=== PATIENT | female | born 1960 | race Caucasian/White ===

== ENCOUNTER 2024-06-16 12:50 | Inpatient (IN) | payer MEDICARE, OTHER, SELFPAY ==
[2024-06-16] VITALS (16 sets, daily range): BP systolic 119–185; BP diastolic 63–92
[2024-06-16 08:16] LABS: % Basophils 0.4 % (0-2); % Eosinophils 0.5 % (0-6); % Immature Granulocytes 0.5 % (0-0.5); % Monocytes 0.6 % (1.7-9.3); Absolute Eosinophils 0.1 10^3/uL (0-0.7); Absolute Immature Granulocytes 0.1 10^3/uL (0-0.05); Absolute Lymphocytes 0.5 10^3/uL (1.2-3.4); Absolute Monocytes 0.1 10^3/uL (0.1-0.6); Absolute Neutrophils 10.7 10^3/uL (1.4-6.5); Hematocrit 38.6 % (37.0-47.0); Hemoglobin 13.3 g/dL (12.0-16.0); Mean Corp Hgb Conc. 34.5 g/dL (33.0-37.0); Mean Corpuscular Volume 95.8 fL (81.0-99.0); Mean Platelet Volume 10.6 fL (7.4-10.4); Nucleated Red Blood Cells % 0 %; Platelet Count 232 10^3/uL (130-400); Red Blood Cell Count 4.03 10^6/uL (4.20-5.40); Red Cell Dist. Width 11.9 % (11.5-14.5); White Blood Cell Count 11.3 10^3/uL (4.8-10.8)
[2024-06-16 08:31] LABS: ALT (SGPT) 24 U/L (0-35); AST (SGOT) 22 U/L (14-36); Alkaline Phosphatase 101 U/L (38-126); Blood Urea Nitrogen 21 mg/dl (7-17); Calcium 9.7 mg/dl (8.4-10.2); Carbon Dioxide 22 mmol/L (22-30); Chloride 106 mmol/L (98-107); Estimated Creatinine Clearance 101 ml/min; Glucose 303 mg/dl (70-99); Potassium 4.4 mmol/L (3.5-5.1); Sodium 140 mmol/L (135-145); Total Bilirubin 0.8 mg/dl (0.2-1.3); Total Protein 6.8 g/dl (6.3-8.2); eGFR > 60.00
[2024-06-16] MEDS: DILAUDID 0.5 MG IV ×2 (08:52→14:41)
--- NOTE | 2024-06-16 09:52 | ED.GENMED ---
History of Present Illness
General
Chief Complaint: Flank Pain
Source: patient
Exam Limitations: none
Time Seen by Provider: 06/16/24 08:52
History of Present Illness
History of Present Illness:
64-year-old female presents with acute onset of left flank pain. Patient states she woke up around 4:30 AM with the pain. She reports she is never had pain like this before does admit that she has been nauseous as well. She was given Toradol and
Zofran by EMS. On my evaluation patient reports pain is about a 5 out of 10 and is improved but does persist. No injury. No abdominal pain. She denies any history of medical conditions.
Past History
Past History
ED Past Medical History: Other (Cataracts)
Phy Exam
Physical Exam
Physical Exam:
CONSTITUTIONAL Patient alert and oriented to person, place and time. Well-appearing. Vital signs reviewed. Obese
HEAD atraumatic, normocephalic.
EYES eyelids normal to inspection, Pupils equally round and reactive to light, Extraocular muscles intact, Conjunctiva normal, Sclera normal.
NECK normal range of motion, Trachea midline, no jugular venous distention.
RESPIRATORY CHEST No respiratory distress noted, Chest expansion equal, Bilateral breath sounds clear.
CARDIOVASCULAR regular rate and rhythm, Heart sounds normal.
ABDOMEN abdomen nontender, Bowel sounds normal. No distention.
BACK normal inspection, no obvious deformities, mild left CVA tenderness
UPPER EXTREMITY range of motion normal, Motor strength normal, no cyanosis, no edema.
LOWER EXTREMITY range of motion normal, Motor strength normal, no cyanosis, no edema.
NEURO Speech normal, No focal motor deficits, [place] coma scale 15, Memory normal, Cranial Nerves intact to screening exam.
SKIN skin warm, dry, and normal in color.
PSYCHIATRIC patient oriented to person place and time, Normal affect.
Course
Orders/Labs/Results
Orders:
Orders
06/16/24 08:07
Complete Blood Count/With Diff Urgent
Comprehensive Metabolic Panel Urgent
Urinalysis Reflex To Culture Urgent
Date Specimen was Collected: 06/16/24
Time Specimen was Collected: 07:53
Urine Microscopic Reflex Cult Urgent
Urine Culture Urgent
RANJEET Source: U
Specimen Description:
Date Specimen was Collected: 06/16/24
Time Specimen was Collected: 07:53
06/16/24 08:39
HYDROmorphone [Dilaudid] 0.5 mg .ROUTE .STK-MED ONE
06/16/24 08:51
HYDROmorphone [Dilaudid] 0.5 mg IV NOW STA
06/16/24 09:09
CT Abd/pel Without Iv Or Oral Urgent
Comment:
Reason For Exam: L flank pain
0.9% Sodium Chloride 1000 ml [Nss] 1,000 ml IV BOLUS
06/16/24 10:42
Straight cath- Treatment ONCE
06/16/24 11:44
CefTRIAXone [Rocephin] 2,000 mg IV NOW STA
06/16/24 11:45
Lactic Acid Urgent
Blood Culture Urgent
RANJEET Source: Blood/Venous
Specimen Description:
06/16/24 11:46
Blood Culture Urgent
RANJEET Source: Blood/Venous
Specimen Description:
Abnormal Lab Results
06/16/24
08:07
WBC 11.3 H 10^3/uL
(4.8-10.8)
RBC 4.03 L 10^6/uL
(4.20-5.40)
MCH 33.0 H pg
(27.0-31.0)
MPV 10.6 H fL
(7.4-10.4)
Abs Immat Gran (auto) 0.1 H 10^3/uL
(0-0.05)
Absolute Neuts (auto) 10.7 H 10^3/uL
(1.4-6.5)
Absolute Lymphs (auto) 0.5 L 10^3/uL
(1.2-3.4)
Neutrophils % 94.0 H %
(42.2-75.2)
Lymphocytes % 4.0 L %
(20.5-51.1)
Monocytes % 0.6 L %
(1.7-9.3)
BUN 21 H mg/dl
(7-17)
Glucose 303 H mg/dl
(70-99)
Urine Ketones Trace A
(Negative)
Ur Occult Blood Reflex 4+ A
(Negative)
Urine Nitrite (Reflex) Positive A
(Negative)
Leukocyte Esterase Rfl 2+ A
(Negative)
Urine Glucose 1+ A
(Negative)
06/16/24 08:07
06/16/24 08:07
Vital Signs
Initial and Last Documented VS:
Initial Vital Signs
Temp Pulse Resp BP Pulse Ox
98.6 F 91 17 164/82 94
06/16/24 07:36 06/16/24 07:36 06/16/24 07:36 06/16/24 07:36 06/16/24 07:36
Last Documented Vital Signs
Temp Pulse Resp BP Pulse Ox
99.7 F 118 33 161/78 97
06/16/24 08:56 06/16/24 11:00 06/16/24 11:00 06/16/24 11:00 06/16/24 11:00
MDM/Problems Addressed
MDM/Problems Addressed:
Renal colic, obesity, possible kidney mass, uti, infected kidney stone
*Radiology
Radiology exam reviewed: radiology read reviewed
*Pulse Oximetry
Patient hypoxic: no
*Critical Care Note
Total Time (30-74mins, 75-104mins- exclusive of procedures): 30 minutes
Data Reviewed
Source: patient
Patient Management
Discussion with other providers: Wrinkle Chaser (Urology)
Escalation/DeEscalation of care consider admission/obs:
Six 4-year-old female presents with left leg pain. Found to be hyperglycemic. Appears at the past they were concerned about the rising hemoglobin A1c but she is not treated for diabetes. Of note, her urine does show nitrite positive and she has a
low-grade temp. Given her white count and findings concern for infected stone. Case discussed with urology. Cover with antibiotics. Also seen was a possible renal mass. Urology to evaluate. Admit
ED Attending Note
-
Portions of this chart may have been created with voice recognition software.� Occasional wrong word or��sound alike� substitutions may have occurred due to the inherent limitations of voice recognition software.
Discharge Plan
Departure
Patient Disposition: Admit
Date of Disposition: 06/16/24
Time of Disposition: 11:51
Admit to: Med/Surg
Presentation/result/management discussed w/ accepting MD/: Hospitalist
Discharge Problem:
Nephrolithiasis, Urinary tract infection, Acute hyperglycemia
Referrals:
Abhinav Carbajal DO [Family Provider] -
Discharge Date and Time
Print Language: BURKINAN
[2024-06-16 11:30] LABS: Urine Albumin Trace (Neg - Trace); Urine Bilirubin Negative (Negative); Urine Character Clear (Clear); Urine Color Yellow; Urine Glucose 1+ (Negative); Urine Ketone Trace (Negative); Urine Leukocyte 2+ (Negative); Urine Nitrite Positive (Negative); Urine Occult Blood 4+ (Negative); Urine Specific Gravity 1.015 (<1.030); Urine Urobilinogen Negative (Neg - 1+)
[2024-06-16] MEDS: NSS 1000 IV ×2 (11:42→15:01)
[2024-06-16 11:50] LABS: Urine Bacteria Many (Negative)
--- NOTE | 2024-06-16 12:15 | HPS.HSE ---
Family Physician
-
Family Physician: Abhinav Carbajal
Chief Complaint
-
Left flank pain with nausea, vomiting
History of Present Illness
64-year-old female complaining of left flank pain that woke her up at 4 AM with chills, diaphoresis and episode of vomiting. She denies any urinary symptoms. No history of calculus, although her sister has history of renal calculi. She denies
headache, sore throat, fever, chills, chest pain, palpitations, shortness breath, cough, abdominal pain, current nausea, diarrhea, increased thirst, increased urination. Her CT abdomen showed 2 mm left UPJ calculus with mild-moderate ureteral
dilation along with incidental 3 cm left kidney mass which will be worked up as outpatient by urology Dr. Louise discussed at bedside. She was also noted to be hyperglycemic with blood sugar of 303 denies history of diabetes, although outpatient
record showed she had an elevated HgbA1c of 6.29 June 2023 along with elevated lipid panel for which she never followed up. Patient does report she perhaps did not look in her patient portal after getting her labs last year. She is past medical
history of morbid obesity, ex-smoker quit 1990.
Medical History
Past Medical History
Past Medical History: Reports Other
Additional Past Medical History:
Morbid obesity
Ex-smoker quit 1990
Past Surgical History: Reports Other
Additional Past Surgical History:
Hysterectomy
Cholecystectomy
Left ankle reconstruction with rods due to fracture
Tonsillectomy
Bilateral cataract extraction
Social History
Tobacco: Non-smoker
Alcohol: Occasional (Weekends 2 glasses of wine or 2 cocktails with friends)
Drug: None
Personal: Single
Living: Alone
Employment: Retired
Family History
Family History: Other (Sister history of renal calculi, mother pulmonary embolism status post benign brain meningioma resection age 68 history DM2, father age 87 old age)
Allergies / Home Medications
Allergies reflects when Allergies were last updated in [facility].
Home Medications with original date entered in [facility]
Allergy/Medication List:
Allergies
Allergy/AdvReac Type Severity Reaction Status Date / Time
No Known Allergies Allergy Unverified 06/16/24 07:51
Home Medications
No Meds [No Current Medications] 06/16/24
Review of Systems
-
History Source: Patient
A 12 point ROS was completed and negative except as noted: Yes
Constitutional: Reports Chills; Denies Fever
EENT: Denies Sore Throat
Respiratory: Denies Cough or Trouble Breathing
Cardiac: Denies Chest Pain, Diaphoresis, Palpitations or Syncope
Abdomen/GI: Reports Vomiting (X 1 at 4 AM); Denies Abdominal Pain, Nausea, Diarrhea, Constipated or Bloody Stools
: Reports Flank Pain (Left-sided); Denies Dysuria, Frequency, Incontinence, Difficulty Voiding, Urgency or Bleeding
Musculoskeletal: Denies Joint Pain or Edema
Skin: Denies Itching or Rash
Neurological: Denies Dizzy, Headache or Weakness
Endocrine: Reports No Symptoms
Hematologic/Lymphatic: Reports No Symptoms
Psych: Reports Calm
Physical Exam
Vital Signs
Vital Signs
Temp Pulse Resp BP Pulse Ox
99.7 F 118 33 161/78 97
06/16/24 08:56 06/16/24 11:00 06/16/24 11:00 06/16/24 11:00 06/16/24 11:00
Physical Exam
General: Comfortable, Conversant, Pain (Left flank), Chills and Morbidly Obese; No Fever
HEENT: NormoCephalic, Anicteric, Moist mucous membranes, PERRLA, [place] Conjunctivae and No Ptosis
Respiratory: Clear; No Wheezes, Rales or Rhonchi
Cardiac: S1/S2 and Tachycardia (Sinus tachycardia HR 118 bpm); No Murmur, Rub, Gallop or Peripheral Edema
Breast: Deferred by me
GI: Soft, Non Tender, Non Distended, Normal Bowel Sounds and No Hepatosplenomegaly
Rectal: Deferred by Provider
Genito-urinary: Costovertebral angle tend (Left CVA tenderness)
Musculoskeletal: No Clubbing, No Cyanosis and No Edema
Skin: Warm and Dry; No Rash
Neuro: AO x 3, No Motor Deficits, Nonfocal/grossly intact and No Sensory Deficits; No Slurred Speech, Facial Droop or Tremors
Psych: Calm
Laboratory Results
-
06/16/24 08:07
06/16/24 08:07
Laboratory Results
Total Bilirubin 0.8 mg/dl (0.2-1.3) 06/16/24 08:07
AST 22 U/L (14-36) 06/16/24 08:07
ALT 24 U/L (0-35) 06/16/24 08:07
Alkaline Phosphatase 101 U/L (38-126) 06/16/24 08:07
Impression/Plan
-
Impression/plan:
Admit to MedSurg
#Sepsis 2/2 to pyelonephritis with moderate left ureteral dilation and 2 mm left UVJ calculus
WBC 11.3 with left shift, 99.7, HR 118
-Consult urology
-Follow urine culture
-Check lactic acid
-IV Rocephin
-IV NSS 1 L given in ER
-IV Dilaudid as needed moderate-severe pain, Tylenol mild pain
-Follow CBC, BMP, blood cultures x2 pending
CT abdomen pelvis without IV or oral contrast:
1. 2 mm left ureterovesical junction calculus with mild to moderate left ureteral and pelvicalyceal dilation.
2. concern raised for a 3 cm mass arising from the left kidney. Lobulation of the left kidney is normal variation is a differential consideration, although felt
to be less likely. Further evaluation with dedicated CT or MRI of the abdomen with attention to the kidneys is advised, to be performed without
and with contrast if there are no contraindications.
# New 3 cm mass left kidney unclear
-Consider CT or MRI of abdomen with contrast per radiology recc
-Discussed with Dr. Louise at bedside will have patient follow-up as outpatient
#New onset Dm
Never followed up regarding elevated A1c 6.4% in 2022. She does report perhaps she did not look in her portal for follow-up
PCP is Dr Carbajal
BS 303, last oral intake yesterday 06/15/24
-Accu-Cheks with SSI, check HgbA1c
-Consult coding educator if inpatient by Tuesday am
-Will place diabetic training by nursing
-Iv Nss 100 cc/hr
- pending Hgba1c will decide on BS mgmt with meds
#Reported outpatient history of elevated lipid profile from June 2023-noncompliant follow-up
Will check lipid profile
#Ex-smoker
Quit 1989
Morbid obesity due to excess calorie consumption�BMI 45.6
-Affects all aspects of care
-Recommended weight loss with 1800 ADA low-fat diet
DVT prophylaxis
Sq heparin in am
Full code
[2024-06-16 12:21] LABS: Glucose - Point of Care 219 mg/dl (70-99)
--- NOTE | 2024-06-16 12:33 | CONS.URO ---
Consultation
-
Performing Provider: Peffer
Reason for Consultation: Ureteral stone, UTI, sepsis
Medical History
History of Present Illness
64F with no prior history of stones
Presented to ER today with severe L flank pain
CT showed a 2mm L distal ureteral stone
Found to have low grade elevated temp, persistent tachypnea and tachycardia, leukocytosis, and UA grossly positive for infection
She was started on abx and being admitted for sepsis
Urology consulted for obstructing stone
Past Medical History
Past Medical History: None
Past Surgical History: Cholecystectomy, Gynocological and Tonsilectomy
Social History
Tobacco: Former Smoker
Alcohol: Occasional
Family History
Family History: Reviewed & Not Pertinent
Allergies/Home Medications
Allergies
Allergy/AdvReac Type Severity Reaction Status Date / Time
No Known Allergies Allergy Unverified 06/16/24 07:51
Home Medications
�Medication �Instructions �Recorded �Confirmed �Type
No Meds [No Current Medications] 06/16/24 06/16/24 History
Physical Exam
Vital Signs
Vital Signs
Temp Pulse Resp BP Pulse Ox
99.7 F 118 33 161/78 97
06/16/24 08:56 06/16/24 11:00 06/16/24 11:00 06/16/24 11:00 06/16/24 11:00
Lab / Testing Results
Laboratory Results
06/16/24 08:07
06/16/24 08:07
Physical Exam
General: Well Developed, Well Nourished and Other (tachypneic)
Respiratory: Clear and Other (tachy)
Cardiac: Tachycardia
GI: Soft and Non Tender
Genito-urinary: Costovertebral Angle Tend
Neuro: AO x 3
Psych: Calm and Intact Judgement
Assessment / Plan
-
64F with sepsis from obstructing 2mm distal L ureteral stone
Incidental 3cm L renal mass vs abnormal anatomy
- OR for cystoscopy, left ureteral stent - possible distal ureteroscopy if stone easily accessed without pressure irrigation
- IV antibiotics pending cultures
- Okay for diet after procedure
- Supportive care per hospitalist
Data Reviewed
-
CT Scan: Image personally visualized and interpreted
Lab Data: Labs Reviewed
--- NOTE | 2024-06-16 12:53 | W.PN.UPDATE ---
Update Note
Progress Note Update
This is an addendum to the H&P written by Beatrice Vazquez on 06/16/2024. Patient seen examined independently with FORGING ROLL OPERATOR.
64-year-old female here with left flank pain.
CT scan showing 2 mm left UVJ calculus.
Clinically patient septic secondary to left-sided pyelonephritis. N.p.o., IV fluids, urine culture, blood cultures, ceftriaxone. Urology to take to OR for stent.
Patient also with hyperglycemia blood sugar 300 possibly due to untreated/on followed diabetes. Insulin sliding scale. Check hemoglobin A1c.
[2024-06-16 13:57] LABS: Glucose - Point of Care 209 mg/dl (70-99)
--- NOTE | 2024-06-16 14:55 | W.IMMPOSTOP ---
Surgical Immed Post Op Note
-
Primary Surgeon: Peffer
Assisting Surgeon: none
Pre-op Diagnosis: Sepsis, L ureteral stone
Post-op Diagnosis: same
Procedure Performed: cystoscopy, L ureteroscopy, L ureteral stent
Anesthesia Type: gen
Specimen / Cultures: none
Estimated Blood Loss: none
Complications: none
Operative Findings: no distal ureteral stone or bladder stone found
stent in good position with mildly purulent urine
--- NOTE | 2024-06-16 15:24 | PTCARENOTE ---
1509: Patient arrived to 2S. Full head to toe assessment completed. IVF running per order. Patient wearing 2L NC with SpO2 greater than 92%. Call andino within reach and bed in lowest position.
[2024-06-16 16:00] LABS: Glucose - Point of Care 276 mg/dl (70-99)
[2024-06-16] MEDS: NOVOLOG FLEXPEN-LOW RESISTANCE 3 UNITS SC (16:25)
[2024-06-16] MEDS: TYLENOL 650 MG PO (18:50)
[2024-06-16] MEDS: HEPARIN 5000 UNITS SC (19:57)
[2024-06-16] MEDS: ROXICODONE 5 MG PO (21:07)
[2024-06-16 21:35] LABS: Glucose - Point of Care 296 mg/dl (70-99)
[2024-06-17 03:20] VITALS: BP 136/86
[2024-06-17] MEDS: NSS 1000 IV (03:59)
[2024-06-17 06:32] LABS: % Basophils 0.1 % (0-2); % Immature Granulocytes 0.4 % (0-0.5); % Lymphocytes 6.1 % (20.5-51.1); % Monocytes 2.8 % (1.7-9.3); % Neutrophils 90.6 % (42.2-75.2); Absolute Immature Granulocytes 0.1 10^3/uL (0-0.05); Absolute Lymphocytes 0.8 10^3/uL (1.2-3.4); Absolute Monocytes 0.4 10^3/uL (0.1-0.6); Absolute Neutrophils 11.8 10^3/uL (1.4-6.5); Hematocrit 34.4 % (37.0-47.0); Mean Corp Hgb Conc. 34.9 g/dL (33.0-37.0); Mean Corpuscular Hgb 34.3 pg (27.0-31.0); Mean Corpuscular Volume 98.3 fL (81.0-99.0); Mean Platelet Volume 10.9 fL (7.4-10.4); Nucleated Red Blood Cells % 0 %; Platelet Count 198 10^3/uL (130-400); Red Cell Dist. Width 11.8 % (11.5-14.5)
--- NOTE | 2024-06-17 07:05 | PTCARENOTE ---
Diabetic teaching talked about with pt. Specifically diet control.
[2024-06-17 07:09] LABS: ALT (SGPT) 25 U/L (0-35); AST (SGOT) 22 U/L (14-36); Albumin 3.5 g/dl (3.5-5.0); Alkaline Phosphatase 71 U/L (38-126); Blood Urea Nitrogen 12 mg/dl (7-17); Calcium 9.1 mg/dl (8.4-10.2); Carbon Dioxide 22 mmol/L (22-30); Chloride 108 mmol/L (98-107); Estimated Creatinine Clearance > 125 ml/min; Glucose 216 mg/dl (70-99); HDL Cholesterol 33 mg/dl; LDL Cholesterol, Calculated 134 mg/dl; Potassium 4.3 mmol/L (3.5-5.1); Sodium 140 mmol/L (135-145); Total Bilirubin 0.7 mg/dl (0.2-1.3); Total Cholesterol 191 mg/dl (50-199); Total Protein 6.1 g/dl (6.3-8.2); Triglyceride 124 mg/dl (10-149); Very Low Density Lipoprotein 24 mg/dl (0-30); eGFR > 60.00
[2024-06-17 07:25] VITALS: BP 160/90
[2024-06-17 07:32] LABS: Glucose - Point of Care 219 mg/dl (70-99)
--- NOTE | 2024-06-17 08:30 | W.PN.HOSP.TC ---
Today's Communication/Plan
-
Continue antibiotics
Await cultures
Add Lantus, NovoLog
Diabetes education consult tomorrow
Assessment / Plan
Assessment / Plan
Gen-AAOx3, NAD
HEENT-NC, AT, anicteric, clear oral mm
Neck-supple
CV-reg, no M, +S1/S2
Lungs-clear B/L
Abd-soft, NT, ND
Ext-no edema
Musculoskeletal-no cyanosis, clubbing
Skin-warm and dry
Neuro-grossly non-focal
Psych-calm, cooperative
Sepsis due to left pyelonephritis -due to obstructive uropathy due to nephrolithiasis. Hemodynamically stable, sepsis improved. Continue antibiotics. Blood cultures positive for gram-negative bacilli, urine culture pending. Currently on IV
ceftriaxone.
Obstructive uropathy -left UVJ stone. Underwent successful cystoscopy with stenting yesterday.
Left renal mass -3 cm. Will need further evaluation as an outpatient, follow-up with urology.
DM2 with hyperglycemia -new diagnosis of diabetes. Hemoglobin A1c 7.0%. Recommend diet, exercise, weight loss. She is opposed to using metformin because of concerns over side effects. Can consider GLP-1 agonist on discharge. Currently on
insulin sliding scale, add basal/bolus insulin.
Morbid obesity due to excess calories
Full code
Anticipated Discharge: 24 - 48 hours
Subjective/Interval History
-
Date of Service: June 17, 2024
Patient seen and examined. Feels much better. Minimal left flank pain.
Objective Data
-
Labs:
Laboratory Results
06/17/24
06:14
WBC 13.0 H
Hgb 12.0
Hct 34.4 L
Plt Count 198
Sodium 140
Potassium 4.3
Chloride 108 H
Carbon Dioxide 22
BUN 12
Creatinine 0.6
Glucose 216 H
Calcium 9.1
Total Bilirubin 0.7
AST 22
ALT 25
Alkaline Phosphatase 71
Vital Signs:
Vital Signs
Temp Pulse Resp BP Pulse Ox
97.7 F 81 18 160/90 98
06/17/24 07:25 06/17/24 07:25 06/17/24 07:25 06/17/24 07:25 06/17/24 07:25
I&O
06/16/24 06/17/24 06/18/24
06:59 06:59 06:59
Intake Total 2039 / 2039
Output Total 1200 / 1200
Balance 840 / 840
Review of Systems
-
History Source: Patient
All other systems: Reviewed and negative
[2024-06-17] MEDS: HEPARIN 5000 UNITS SC ×2 (08:36→19:50)
[2024-06-17] MEDS: NOVOLOG FLEXPEN-LOW RESISTANCE 2 UNITS SC (08:37)
[2024-06-17] MEDS: LANTUS 0.1 UNITS SC (09:25)
[2024-06-17 11:10] VITALS: BP 170/93
[2024-06-17 11:23] LABS: Glucose - Point of Care 250 mg/dl (70-99)
[2024-06-17] MEDS: NSS IV (11:35)
[2024-06-17] MEDS: NOVOLOG FLEXPEN 6 UNITS SC ×2 (11:39→16:59)
[2024-06-17] MEDS: NOVOLOG FLEXPEN-LOW RESISTANCE 3 UNITS SC (11:39)
--- NOTE | 2024-06-17 11:48 | W.PN.URO.CBU ---
Today's Communication / Plan
-
Continue antibiotics
Assessment / Plan
-
64F with sepsis and bacteremia from obstructing 2mm distal L ureteral stone
Incidental 3cm L renal mass vs lobular anatomy
s/p L ureteroscopy and L ureteral stent placement 06/16 - stone had passed spontaneously
- IV antibiotics pending cultures
- Follow up for stent removal in 1-2 weeks
- Plan for outpatient evaluation of possible L renal mass with renal protocol CT or MRI
Diagnosis
-
Date of Service: June 17, 2024
-
Patient Diagnosis:
L ureteral stone
Sepsis
Bacteremia
Renal mass
Post Op s/p L ureteroscopy, L ureteral stent placement 06/16
Subjective
-
tolerating stent
some frequency
Objective
-
Vital Signs
Temp Pulse Resp BP Pulse Ox
97.5 F 88 18 170/93 99
06/17/24 11:10 06/17/24 11:10 06/17/24 11:10 06/17/24 11:10 06/17/24 11:10
Intake and Output
06/16/24 06/17/24 06/18/24
06:59 06:59 06:59
Intake Total 2039 / 204
Output Total 1200 / 1200
Balance 840 / 840
Intake:
Oral fluids 1340 / 1340
IV fluids (Total) 700 / 700
Normosal 300 / 300
Output:
Urine, Voided 1200 / 1200
Other:
Number of approximated MODERATE 4
amounts of urine
Laboratory Results
06/17/24 06:14
06/17/24 06:14
Physical Exam
-
General - well developed, well nourished, no acute distress
Chest - clear
Abdomen - soft, non-tender
Skin - warm & dry
Neuro - AOx3
--- NOTE | 2024-06-17 13:04 | CM ---
Met with patient at bedside; initial assessment completed
Pharmacy verified: [facility] [address] [place] [address] [place]
IMM benefit explained; form signed @ 1250
Patient lives with a friend in split level home; no steps to enter; 5-6 steps between levels; powder room on 1st floor; 2nd floor master bath has stall shower
PLOF: independent with ambulation, stairs, and ADLs; retired; drives
NO recent SNF utilization
NO DME
Friend/Roommate will transport home
Plan: Discharge to home when medically stable; no needs
--- NOTE | 2024-06-17 13:28 | CHAP ---
Ms. Glez was welcoming - said she's doing better today. Emotional support provided.
[2024-06-17] MEDS: STERILE WATER FOR INJECTION 20 ML IV (14:26)
[2024-06-17] MEDS: ROCEPHIN 2000 MG IV (14:27)
[2024-06-17 15:25] VITALS: BP 158/89
--- NOTE | 2024-06-17 15:42 | PTCARENOTE ---
Dr. Lima made aware of patients BP. No new orders at this time. Care ongoing.
[2024-06-17 16:30] LABS: Glucose - Point of Care 169 mg/dl (70-99)
[2024-06-17] MEDS: NOVOLOG FLEXPEN-LOW RESISTANCE 1 UNITS SC (16:59)
[2024-06-17] MEDS: ZESTRIL 2.5 MG PO (16:59)
[2024-06-17] MEDS: TYLENOL 650 MG PO (20:15)
[2024-06-17 21:37] LABS: Glucose - Point of Care 146 mg/dl (70-99)
[2024-06-17] MEDS: ANESTHETIC LOZENGE 1 LOZENGE PO (22:21)
[2024-06-17 23:11] VITALS: BP 144/77
--- NOTE | 2024-06-18 05:50 | PTCARENOTE ---
20:45 pt c/o sore throat , throat assessed is light pink on the right side , no temp, DAG COATER notified, new order, lozenges.
[2024-06-18 06:11] LABS: % Basophils 0.2 % (0-2); % Eosinophils 0.7 % (0-6); % Immature Granulocytes 0.4 % (0-0.5); % Lymphocytes 17.5 % (20.5-51.1); % Neutrophils 75.2 % (42.2-75.2); Absolute Eosinophils 0.1 10^3/uL (0-0.7); Absolute Lymphocytes 1.5 10^3/uL (1.2-3.4); Absolute Monocytes 0.5 10^3/uL (0.1-0.6); Absolute Neutrophils 6.4 10^3/uL (1.4-6.5); Hematocrit 33.5 % (37.0-47.0); Hemoglobin 11.5 g/dL (12.0-16.0); Mean Corp Hgb Conc. 34.3 g/dL (33.0-37.0); Mean Platelet Volume 10.8 fL (7.4-10.4); Nucleated Red Blood Cells % 0 %; Platelet Count 211 10^3/uL (130-400); Red Blood Cell Count 3.49 10^6/uL (4.20-5.40); Red Cell Dist. Width 12.2 % (11.5-14.5); White Blood Cell Count 8.6 10^3/uL (4.8-10.8)
[2024-06-18 06:40] LABS: ALT (SGPT) 23 U/L (0-35); AST (SGOT) 19 U/L (14-36); Albumin 3.3 g/dl (3.5-5.0); Alkaline Phosphatase 70 U/L (38-126); Blood Urea Nitrogen 16 mg/dl (7-17); Calcium 9.2 mg/dl (8.4-10.2); Carbon Dioxide 21 mmol/L (22-30); Chloride 108 mmol/L (98-107); Estimated Creatinine Clearance > 125 ml/min; Glucose 145 mg/dl (70-99); Sodium 141 mmol/L (135-145); Total Bilirubin 0.5 mg/dl (0.2-1.3); eGFR > 60.00
[2024-06-18 07:19] VITALS: BP 129/75
[2024-06-18 07:22] LABS: Glucose - Point of Care 142 mg/dl (70-99)
[2024-06-18] MEDS: HEPARIN 5000 UNITS SC (08:23)
[2024-06-18] MEDS: ZESTRIL 2.5 MG PO (08:26)
[2024-06-18] MEDS: LANTUS 0.1 UNITS SC (08:26)
[2024-06-18] MEDS: NOVOLOG FLEXPEN-LOW RESISTANCE SC ×2 (08:27→13:13)
[2024-06-18] MEDS: NOVOLOG FLEXPEN 6 UNITS SC ×2 (08:27→13:13)
--- NOTE | 2024-06-18 09:08 | W.PN.URO.CBU ---
Today's Communication / Plan
-
PO antibiotic course
Outpatient stent removal in 1-2 weeks
Stable for discharge from standpoint
Assessment / Plan
-
64F with sepsis and bacteremia from obstructing 2mm distal L ureteral stone
Incidental 3cm L renal mass vs lobular anatomy
s/p L ureteroscopy and L ureteral stent placement 06/16 - stone had passed spontaneously
- Urine culture with E coli bacteremia - wolf sensitive
- Okay to switch to culture appropriate PO option for 10 day total antibiotic course
- Follow up for stent removal in 1-2 weeks - office will call to schedule
- Plan for outpatient evaluation of possible L renal mass with renal protocol CT or MRI
Stable for discharge from standpoint
Diagnosis
-
Date of Service: June 18, 2024
-
Patient Diagnosis:
L ureteral stone
Sepsis
Bacteremia
Renal mass
Post Op s/p L ureteroscopy, L ureteral stent placement 06/16
Subjective
-
No events
Objective
-
Vital Signs
Temp Pulse Resp BP Pulse Ox
98 F 76 14 129/75 95
06/18/24 07:19 06/18/24 08:26 06/18/24 07:19 06/18/24 08:26 06/18/24 07:19
Intake and Output
06/17/24 06/18/24 06/19/24
06:59 06:59 06:59
Intake Total 2039 / 2039
Output Total 1200 / 1200
Balance 840 / 840 1919
Intake:
Oral fluids 1340 / 1340 1919
IV fluids (Total) 700 / 700
Normosal 300 / 300
Output:
Urine, Voided 1200 / 1200
Other:
Number of approximated MODERATE 4 3
amounts of urine
Laboratory Results
06/18/24 05:34
06/18/24 05:34
Physical Exam
-
General - well developed, well nourished, no acute distress
Chest - clear
Abdomen - soft, non-tender
--- NOTE | 2024-06-18 10:13 | CM ---
Reviewed the chart notes and spoke with the patient at the bedside. The patient anticipates being discharged to home today with no additional needs being identified. The patient's roommate will provide transportation. CM continues to be available
to patient/family and is monitoring medical plan for needs at discharge.
Plan: Discharge to home today.
--- NOTE | 2024-06-18 10:24 | PN.DE ---
Diabetes Education
- -
06/18/2024: Diabetes Education Consult
64 year old female with New onset T2DM, current A1C 7.0%.
Met with Ms. Glez this morning at bedside for glucose monitor instructions.
Discussed A1C and average blood sugar of 154, diabetes related short and provider relations rep complications, life style modification and self management at home. Pt states she is very familiar with blood sugar monitoring with the Contour Next Ex and insulin
administration, from taking care of her who is now . States was paraplegic and she was the one managing his diabetes care at home.
Provided with Contour Next EZ glucometer with instructions, however, pt declined return demonstration, stating that ' I did this so many times and know how to use this machine'
Discussed testing pattern and expected results and information marked in the take home booklet. Discussed and reviewed importance of reducing CHO intake, being active and checking BS to assess food/medication effect on his BS. Encourage physical
activity and benefit of losing weight.
She questions why she was started on insulin w/o trying other oral medication besides Metformin. Instructed pt to discuss medication management with the primary team.
Discussed OP DSME classes, and provided schedule for next available class. Also encouraged her to call RD and make an appointment for medical nutrition therapy while she awaits for classes to start in September.
Pt will need RX for test strips and lancets for the Contour Next EZ, testing 2x/day at discharge.
[2024-06-18 13:12] LABS: Glucose - Point of Care 146 mg/dl (70-99)
[2024-06-18] MEDS: STERILE WATER FOR INJECTION 20 ML IV (13:17)
[2024-06-18] MEDS: ROCEPHIN 2000 MG IV (13:17)
[2024-06-18] MEDS: FLUSH (NSS) 2 FLUSH IV (13:19)
[2024-06-18 14:03] VITALS: BP 151/86
--- NOTE | 2024-06-18 14:29 | W.DCSUMMARY ---
Discharge Summary
Discharge Data
Date of Admission: 06/16/24
Date of Discharge: 06/18/24
-
Pending Results: No
Hospital Course
Ms. Marcelle Glez is a pleasant 64yo F who came to the ED 06/16 for L flank pain. CT abdomen shows a 2 mm left ureterovesical junction calculus with mild to moderate left ureteral and pelvicalyceal dilation and an incidental 3cm L renal mass. Urine
and blood cultures grew pansensitive E. coli. She was diagnosed with bacteremia, UTI, and nephrolithiasis. She received IV ceftriaxone. On 06/16, Dr. Louise performed a cystoscopy, L ureteroscopy, and placed a L ureteral stent. Pt able to pass the
stone. 06/18, Dr. Louise cleared her from a urology standpoint. Will send her home on PO cefpodoxime for 10 days, per urology recommendations.
Discharge Plan
-
Patient Disposition: Home (Routine Discharge)
Discharge Diagnosis/Procedures: Urinary Tract Infection, Nephrolithiasis, Cystoscopy, Left Ureteroscopy, Left Ureteral Stent
Condition: Good
Diet: No restrictions
Activity: No strenuous activity
Driving Restrictions: As prior to admission
Bathing Restrictions: None
Activity Restrictions/Additional Instructions:
Please return to the hospital if you experience new or worsening symptoms. This includes fever, chills, worsening flank pain.
Please follow up with Dr. Louise in 1-2 weeks for the removal of your stent and further evaluation of the possible renal mass. You should receive a call from his office.
Please take the full 10-day course of antibiotics, even if you feel better.
Referrals:
Abhinav Carbajal DO [Family Provider] -
Joe Louise MD [Active] - (f/u 1-2 weeks for stent removal)
Prescriptions:
New
cefpodoxime 200 mg tablet
200 mg PO BID 10 Days Qty: 20 0RF
No Action
No Current Medications
0
Discharge Orders:
Discharge Patient (As Directed); Ordered 06/18/24
Ordered By: Hortensia Xie
Discharge Date and Time
Print Language: CITIZEN OF [place]
--- NOTE | 2024-06-18 17:40 | W.PN.HOSP.TC ---
Addendum entered and electronically signed by Richard Meredith MD 06/18/24 18:20:
spent total of 39 minutes. reviewing chart, teaching residnts and discussing dc plans
-does nto want metformin
-start glipizide
-will need glucometer and lancets
-ccdiet
-outpatient glp1 inhibitor discussion with pcp
-complete 10days of po atb
-outpatient uro follow up for stent removal
-aware of renal mass and knows she eneds to follow up with outpt uro for repeat scans.
Original Note:
Today's Communication/Plan
-
Assessment / Plan
Assessment / Plan
Ms. Marcelle Glez is a 64yo F w acute hyperglycemia, bacteremia, and nephrolithiasis.
Bacteremia
- Likely secondary to L pyelonephritis, due to obstructive nephropathy from nephrolithiasis
- Urine, Blood cultures: pansensitive E. coli
- on ceftriaxone. Will switch to cefpodoxime for 10 days at discharge.
Obstructive uropathy
- 2 mm calculus at L uterovesicular junction
- Successful cystoscopy, L ureteroscopy, and L ureter stenting on 06/16
- Calculus passed spontaneously
- Cleared for d/c by urology
DM type 2
- new onset
- on insulin aspart and glargine
- will transition to PO meds. Pt refuses metformin. Will start glipizide at discharge
DVT prophylaxis: heparin
Code status: Full
Diet: diabetic
Anticipated Discharge: Today
Subjective/Interval History
-
Date of Service: June 18, 2024
Ms. Marcelle Glez is a 64yo F w acute hyperglycemia, bacteremia, and nephrolithiasis. Came to the ED 06/16 for L flank pain. CT abdomen showed a 2mm calculus at the L ureterovesicular junction with mild to moderate L ureteral & pelvic calyceal
dilation. 06/16 Dr. Louise performed a cystoscopy, L ureteroscopy, and L ureteral stent. Calculus passed spontaneously.
She has a sore throat since yesterday. Last BM Tuesday morning, feels gassy now. Pt is up and walking to the bathroom. -ALEX, -N/V/D/C, -dizziness, -lightheadedness, -fever, -chills, -CP, -palpitations, -flank pain.
Objective Data
-
Labs:
Laboratory Results
06/18/24
05:34
WBC 8.6
Hgb 11.5 L
Hct 33.5 L
Plt Count 211
Sodium 141
Potassium 4.0
Chloride 108 H
Carbon Dioxide 21 L
BUN 16
Creatinine 0.6
Glucose 145 H
Calcium 9.2
Total Bilirubin 0.5
AST 19
ALT 23
Alkaline Phosphatase 70
Vital Signs:
Vital Signs
Temp Pulse Resp BP Pulse Ox
98.3 F 104 15 151/86 93
06/18/24 14:03 06/18/24 14:03 06/18/24 14:03 06/18/24 14:03 06/18/24 14:03
I&O
06/17/24 06/18/24 06/19/24
06:59 06:59 06:59
Intake Total 2039
Output Total 1200 / 1200
Balance 840 / 840 1919
Review of Systems
-
History Source: Patient and Records
All other systems: Reviewed and negative
Physical Exam
-
General: Well Developed, Well Nourished and No Apparent Distress
HEENT: Normocephalic, Atraumatic, Moist Mucous Membranes and Neck Non Tender; Negative Pharyngeal Erythema
Respiratory: Clear to Auscultation and Non Labored Respirations; Negative Wheezes, Rales or Rhonchi
Cardiac: Regular Rhythm and S1/S2; Negative Murmur, Rub or Gallop
GI: Soft, Nontender, Nondistended and Normal Bowel Sounds
Genito-urinary: No Costovertebral Tender
Musculoskeletal: No Clubbing, No Cyanosis and No Edema
Skin: Warm and Dry
Neuro: Awake and AO x 3
Psych: Calm
== END 2024-06-18 16:39 | disposition home or self-care (01) | DRG 854 ==
LOC: 2 SOUTH 12:50
PROVIDERS: Clinical Nurse Specialist Family Health; Student in an Organized Health Care Education/Training Program; ADMITTING PHYSICIAN Hospitalist; ATTENDING PHYSICIAN Hospitalist; CONSULT PHYSICIAN Urology; EMERGENCY PHYSICIAN Emergency Medicine; FAMILY PHYSICIAN Family Medicine
PROC: 0T778DZ Dilation of Left Ureter with Intraluminal Device, Via Natural or Artificial Opening Endoscopic (ICD-10-PCS; 2024-06-16)
DX: A41.51 Sepsis due to Escherichia coli [E. coli] (principal); N12 Tubulo-interstitial nephritis, not specified as acute or chronic; N20.2 Calculus of kidney with calculus of ureter; Z68.42 Body mass index [BMI] 45.0-49.9, adult; N28.89 Other specified disorders of kidney and ureter; E66.01 Morbid (severe) obesity due to excess calories; Z87.891 Personal history of nicotine dependence
CPT/HCPCS: 74018; 74176; 76000; 80053; 80061; 81003; 81015; 82962; 83036; 83605; 85025; 87040; 87071; 87086; 87149; 87186; 87205; 96361; 96374; 96375; 99291; C1769; C2617

== ENCOUNTER → 2024-07-02 13:36 | Outpatient (REF) | payer MEDICARE, OTHER, SELFPAY | LOC: HWRAD 13:36 | PROVIDERS: ATTENDING PHYSICIAN Urology; FAMILY PHYSICIAN Family Medicine | DX: N28.89 Other specified disorders of kidney and ureter (principal) | CPT/HCPCS: 74178; Q9967 ==

== ENCOUNTER → 2024-12-11 10:48 | Outpatient (REF) | payer MEDICARE, OTHER, SELFPAY | LOC: HWWDC 10:48 | PROVIDERS: ATTENDING PHYSICIAN Family Medicine | DX: Z12.31 Encounter for screening mammogram for malignant neoplasm of breast (principal); Z78.0 Asymptomatic menopausal state | CPT/HCPCS: 77063; 77067; 77080 ==

== ENCOUNTER 2025-05-16 03:20 | Inpatient (IN) | payer MEDICARE, OTHER, SELFPAY ==
[2025-05-15 21:52] VITALS: BP 183/83
[2025-05-15 21:54] VITALS: BP 183/83
[2025-05-15 21:55] VITALS: BMI 45.8
[2025-05-15 22:19] LABS: Hematocrit 40.1 % (37.0-47.0); Hemoglobin 13.8 g/dL (12.0-16.0); Mean Corp Hgb Conc. 34.4 g/dL (33.0-37.0); Mean Corpuscular Volume 94.8 fL (81.0-99.0); Nucleated Red Blood Cells % 0 %; Platelet Count 223 10^3/uL (130-400); Red Cell Dist. Width 11.8 % (11.5-14.5)
[2025-05-15 22:21] LABS: ALT (SGPT) 29 U/L (0-35); AST (SGOT) 23 U/L (14-36); Albumin 4.1 g/dl (3.5-5.0); Alkaline Phosphatase 95 U/L (38-126); Blood Urea Nitrogen 18 mg/dl (7-17); Calcium 9.2 mg/dl (8.4-10.2); Carbon Dioxide 25 mmol/L (22-30); Chloride 108 mmol/L (98-107); Estimated Creatinine Clearance 116 ml/min; Glucose 177 mg/dl (70-99); Potassium 3.8 mmol/L (3.5-5.1); Sodium 138 mmol/L (135-145); Total Protein 7.0 g/dl (6.3-8.2); eGFR > 60.00
--- NOTE | 2025-05-15 22:46 | ED.GENMED ---
History of Present Illness
<Maisha Lizarraga, GROUP PRACTICE PEDIATRICIAN - Last Filed: 05/18/25 02:52>
General
Chief Complaint: Flank Pain
Source: patient and ambulance crew
Exam Limitations: none
Time Seen by Provider: 05/15/25 22:46
Nursing documentation reviewed up to this point in time: agreed with
History of Present Illness
History of Present Illness:
64-year-old female with history of kidney stones, NIDDM presents for left flank pain, presents via EMS who gave her Toradol and she states pain is now 3/10 much improved. She denies fever or chills. She was nauseous but no longer.
Past History
<Maisha Lizarraga, GROUP PRACTICE PEDIATRICIAN - Last Filed: 05/18/25 02:52>
Past History
ED Past Medical History: Hypercholesterolemia, NIDDM and Other (Cataracts)
Social History
Tobacco: Non-smoker
Personal: Single
Living: alone
Review of Systems
<Maisha Lizarraga, GROUP PRACTICE PEDIATRICIAN - Last Filed: 05/18/25 02:52>
Review of Systems
Allergies reviewed?: Yes
All Other Systems: ROS reviewed and negative except as documented in HPI and ROS
Constitutional: Denies fever or chills
: Reports flank pain (Left); Denies dysuria, frequency or difficulty voiding
Phy Exam
<Maisha Lizarraga, GROUP PRACTICE PEDIATRICIAN - Last Filed: 05/18/25 02:52>
Physical Exam
Physical Exam:
GENERAL: No acute distress. A&Ox3.
CONSTITUTIONAL: Afebrile.
EYES: clear, conjunctivae normal
ENMT: moist mucus membranes, Pharynx nl
RESPIRATORY: Regular respirations, nonlabored, lungs clear.
CARDIOVASCULAR: Regular rate and rhythm, no murmurs, no rubs.
GI: Soft, nontender, normal BS. Left flank tenderness
MUSCULOSKELETAL: Moves with ease. Well perfused.
SKIN: Warm, dry, pink
PSYCH: Normal mood and affect. Well kept, interactive and appropriate
NEUROLOGIC: Awake, alert and oriented. No focal neurological deficits
Course
<Maisha Lizarraga NP - Last Filed: 05/18/25 02:52>
Orders/Labs/Results
Orders:
Orders
05/15/25 22:00
Complete Blood Count/With Diff Urgent
Comprehensive Metabolic Panel Urgent
05/15/25 22:18
CT Abd/pel Without Iv Or Oral Urgent
Comment:
Reason For Exam: L flank pain
05/15/25 23:02
HYDROmorphone [Dilaudid] 0.5 mg .ROUTE .STK-MED ONE
05/15/25 23:03
HYDROmorphone [Dilaudid] 0.5 mg IV NOW STA
05/15/25 23:33
Urinalysis Reflex To Culture Urgent
Date Specimen was Collected: 05/15/25
Time Specimen was Collected: 23:32
Urine Microscopic Reflex Cult Urgent
Urine Culture Urgent
RANJEET Source: U
Specimen Description:
Date Specimen was Collected: 05/15/25
Time Specimen was Collected: 23:32
05/16/25 00:29
Morphine Sulfate 2 mg IV NOW STA
05/16/25 01:02
Lisinopril [Zestril] 10 mg PO NOW STA
05/16/25 01:51
Ketorolac [Toradol] 15 mg IV NOW STA
05/16/25 02:21
Admit/Transfer Patient As Directed
Co-Sign Provider:
Level of Care: Inpatient admission
Assign to:: Medical/Surgical
Physician / Group: [place]
Diagnosis: L obstructing ureterolithiasis
Reason for Hospitalization: symptomatic kidney stone
Expected length of stay greater than two midnights?: Yes
ELOS- Estimated Length of Stay in days: 2
I certify the patient meets the requirements for IP care: Yes
PRN Pain Medication Management As Directed
May give lesser potent ordered pain med per pt: Yes
preference::
Protocol:: Medication orders for pain may be administered in a
manner that supports deferring to patient preference
when the pt is:
- Requesting an ordered lesser potent pain medication.
Least to most potent pain medications are defined
as: acetaminophen < NSAID < tramadol < opioids
(morphine, oxycodone, hydromorphone).
- Requesting a lesser dose of the same medication IF
ORDERED.
- Requesting a less intrusive route of administration
if both routes are prescribed by the provider (PO <
IV).
05/16/25 02:22
Code Status As Directed
Resuscitation Status: Full Code
05/16/25 03:23
Acetaminophen [Tylenol] 650 mg PO Q4HPRN PRN
Bisacodyl [Dulcolax] 10 mg RECTAL [id number] PRN
Docusate W/Senna [Senokot-S] 1 tablet PO BIDPRN PRN
HYDROmorphone [Dilaudid] 0.5 mg IV Q4HPRN PRN
Ketorolac [Toradol] 10 mg IV Q6HPRN PRN
Lactated Ringers [Lr] 1,000 ml IV 100 mls/hr
Ondansetron Injectable [Zofran] 4 mg IV Q6HPRN PRN
Polyethylene Glycol Powder [Miralax] 17 grams PO DAILYPRN PRN
05/16/25 03:23
UROLOGY CONSULT Routine
Consulting Provider: John Paul Herman Jr.
Was physician already notified: Yes
Activity As Directed
Activity Level: As Tolerated
Bedside Glucose Monitoring As Directed
Frequency: Q6H
Pneumatic Compression Sleeves As Directed
Type: Knee high
Strain Urine As Directed
Vital Signs As Directed
Frequency: Per unit guidelines
Pulse Ox/spot Check [RESP] Routine
Quantity: 1
DX Deep Vein Thrombosis Video Routine
05/16/25 Breakfast
NPO
Allow oral meds: Yes
Allow clear liquids: Sips of Clears
NPO with Ice Chips: Yes
Insulin Aspart High Resistance [Novolog Flexpen-High Resistance] See Protocol SC Q6
05/16/25 08:00
Brimonidine [Alphagan 0.2% Eye Drops] 1 drop BOTH EYES Q8
Ramipril [Altace] 2.5 mg PO DAILY
Rosuvastatin Calcium [Crestor] 5 mg PO DAILY
Tamsulosin [Flomax] 0.4 mg PO DAILY
Abnormal Lab Results
05/15/25 05/15/25
22:00 23:33
MCH 32.6 H pg
(27.0-31.0)
MPV 10.8 H fL
(7.4-10.4)
Chloride 108 H mmol/L
(98-107)
BUN 18 H mg/dl
(7-17)
Glucose 177 H mg/dl
(70-99)
Ur Occult Blood Reflex 4+ A
(Negative)
Urine Nitrite (Reflex) Positive A
(Negative)
Urine RBC 70-80 A /HPF
(0-2)
Urine Bacteria (Reflex) Many A
(Negative)
Urine Albumin (Reflex) 2+ A
(Neg - Trace)
05/15/25 22:00
05/15/25 22:00
Vital Signs
Initial and Last Documented VS:
Initial Vital Signs
Temp Pulse Resp BP Pulse Ox
98.3 F 92 23 183/83 95
05/15/25 21:52 05/15/25 21:52 05/15/25 21:52 05/15/25 21:52 05/15/25 21:52
Last Documented Vital Signs
Temp Pulse Resp BP Pulse Ox
97.2 F 86 18 168/96 98
05/17/25 15:13 05/17/25 15:13 05/17/25 15:13 05/17/25 15:13 05/17/25 15:13
<Ellie Marie PA-C - Last Filed: 05/16/25 02:01>
Orders/Labs/Results
Orders:
Orders
05/15/25 22:00
Complete Blood Count/With Diff Urgent
Comprehensive Metabolic Panel Urgent
05/15/25 22:18
CT Abd/pel Without Iv Or Oral Urgent
Comment:
Reason For Exam: L flank pain
05/15/25 23:02
HYDROmorphone [Dilaudid] 0.5 mg .ROUTE .STK-MED ONE
05/15/25 23:03
HYDROmorphone [Dilaudid] 0.5 mg IV NOW STA
05/15/25 23:33
Urinalysis Reflex To Culture Urgent
Date Specimen was Collected: 05/15/25
Time Specimen was Collected: 23:32
Urine Microscopic Reflex Cult Urgent
Urine Culture Urgent
RANJEET Source: U
Specimen Description:
Date Specimen was Collected: 05/15/25
Time Specimen was Collected: 23:32
05/16/25 00:29
Morphine Sulfate 2 mg IV NOW STA
05/16/25 01:02
Lisinopril [Zestril] 10 mg PO NOW STA
05/16/25 01:51
Ketorolac [Toradol] 15 mg IV NOW STA
05/16/25 02:21
Admit/Transfer Patient As Directed
Co-Sign Provider:
Level of Care: Inpatient admission
Assign to:: Medical/Surgical
Physician / Group: [place]
Diagnosis: L obstructing ureterolithiasis
Reason for Hospitalization: symptomatic kidney stone
Expected length of stay greater than two midnights?: Yes
ELOS- Estimated Length of Stay in days: 2
I certify the patient meets the requirements for IP care: Yes
PRN Pain Medication Management As Directed
May give lesser potent ordered pain med per pt: Yes
preference::
Protocol:: Medication orders for pain may be administered in a
manner that supports deferring to patient preference
when the pt is:
- Requesting an ordered lesser potent pain medication.
Least to most potent pain medications are defined
as: acetaminophen < NSAID < tramadol < opioids
(morphine, oxycodone, hydromorphone).
- Requesting a lesser dose of the same medication IF
ORDERED.
- Requesting a less intrusive route of administration
if both routes are prescribed by the provider (PO <
IV).
05/16/25 02:22
Code Status As Directed
Resuscitation Status: Full Code
05/16/25 03:23
Acetaminophen [Tylenol] 650 mg PO Q4HPRN PRN
Bisacodyl [Dulcolax] 10 mg RECTAL [id number] PRN
Docusate W/Senna [Senokot-S] 1 tablet PO BIDPRN PRN
HYDROmorphone [Dilaudid] 0.5 mg IV Q4HPRN PRN
Ketorolac [Toradol] 10 mg IV Q6HPRN PRN
Lactated Ringers [Lr] 1,000 ml IV 100 mls/hr
Ondansetron Injectable [Zofran] 4 mg IV Q6HPRN PRN
Polyethylene Glycol Powder [Miralax] 17 grams PO DAILYPRN PRN
05/16/25 03:23
UROLOGY CONSULT Routine
Consulting Provider: John Paul Herman Jr.
Was physician already notified: Yes
Activity As Directed
Activity Level: As Tolerated
Bedside Glucose Monitoring As Directed
Frequency: Q6H
Pneumatic Compression Sleeves As Directed
Type: Knee high
Strain Urine As Directed
Vital Signs As Directed
Frequency: Per unit guidelines
Pulse Ox/spot Check [RESP] Routine
Quantity: 1
DX Deep Vein Thrombosis Video Routine
05/16/25 Breakfast
NPO
Allow oral meds: Yes
Allow clear liquids: Sips of Clears
NPO with Ice Chips: Yes
Insulin Aspart High Resistance [Novolog Flexpen-High Resistance] See Protocol SC Q6
05/16/25 08:00
Brimonidine [Alphagan 0.2% Eye Drops] 1 drop BOTH EYES Q8
Ramipril [Altace] 2.5 mg PO DAILY
Rosuvastatin Calcium [Crestor] 5 mg PO DAILY
Tamsulosin [Flomax] 0.4 mg PO DAILY
Abnormal Lab Results
05/15/25 05/15/25
22:00 23:33
MCH 32.6 H pg
(27.0-31.0)
MPV 10.8 H fL
(7.4-10.4)
Chloride 108 H mmol/L
(98-107)
BUN 18 H mg/dl
(7-17)
Glucose 177 H mg/dl
(70-99)
Ur Occult Blood Reflex 4+ A
(Negative)
Urine Nitrite (Reflex) Positive A
(Negative)
Urine RBC 70-80 A /HPF
(0-2)
Urine Bacteria (Reflex) Many A
(Negative)
Urine Albumin (Reflex) 2+ A
(Neg - Trace)
05/15/25 22:00
05/15/25 22:00
Vital Signs
Initial and Last Documented VS:
Initial Vital Signs
Temp Pulse Resp BP Pulse Ox
98.3 F 92 23 183/83 95
05/15/25 21:52 05/15/25 21:52 05/15/25 21:52 05/15/25 21:52 05/15/25 21:52
Last Documented Vital Signs
Temp Pulse Resp BP Pulse Ox
97.2 F 86 18 168/96 98
05/17/25 15:13 05/17/25 15:13 05/17/25 15:13 05/17/25 15:13 05/17/25 15:13
<Maisha Lizarraga, GROUP PRACTICE PEDIATRICIAN - Last Filed: 05/18/25 02:52>
MDM/Problems Addressed
Differential Diagnosis Includes:
Kidney stone, UTI, pyelonephritis
MDM/Problems Addressed:
64-year-old female with history of kidney stones, NIDDM presents for left flank pain, presents via EMS who gave her Toradol and she states pain is now 3/10 much improved. She denies fever or chills. She was nauseous but no longer
11:15 p.m.
Pt requesting more pain med. Ordered
CBC normal
CMP with no clinically significant abnormality
CT abdomen pelvis radiology report reviewed: Approximate 0.4 cm calculus in the proximal left ureter with mild left hydroureteronephrosis, mild left periureteral stranding and mild left perinephric stranding. No other significant finding
11:55 p.m.
Pt resting comfortably
U/A: No infection
05/16/25 12:30 a.m.
Pt states pain is coming back, now 5/10. She states Dilaudid 'didn't really help'
Morphine ordered.
Case discussed with Ellie Marie who will assume care from this point. Pt informed she may have to be admitted for intractable pain
BP remains high 207/98. States she used to take BP med but stopped it and doesn't remember what it was.
<Maisha Lizarraga, GROUP PRACTICE PEDIATRICIAN - Last Filed: 05/18/25 02:52>
*Pulse Oximetry
SaO2: 95
Oxygen Mode of Delivery: Room air
<Ellie Marie PA-C - Last Filed: 05/16/25 02:01>
*Pulse Oximetry
Patient hypoxic: no
*Critical Care Note
Total Time (30-74mins, 75-104mins- exclusive of procedures): Not Applicable
<Ellie Marie PA-C - Last Filed: 05/16/25 02:01>
Update Note
Update Note:
Update
I received patient in signout. Patient appears comfortable however reports that her pain is getting worse. Vitals are stable. She had 4 doses of pain medication in total. 1 with EMS and 3 in the emergency department. She does not feel comfortable
going home with a stone passage trial at home due to the degree of her pain. Will admit for pain management. Urology on-call made aware. Patient follows with Dr. Louise.
ED Attending Note
<Maisha Lizarraga NP - Last Filed: 05/18/25 02:52>
-
Portions of this chart may have been created with voice recognition software.� Occasional wrong word or��sound alike� substitutions may have occurred due to the inherent limitations of voice recognition software.
Discharge Plan
Departure
Patient Disposition: Admit
Date of Disposition: 05/16/25
Time of Disposition: 01:59
Admit to: Med/Surg
Presentation/result/management discussed w/ accepting MD/DO: Hospitalist
Patient with high blood pressure during this ER visit?: Yes
Condition: Fair
Discharge Problem:
Calculus of proximal left ureter
Interventions
Interventions:
*Risk Screen - Suicide Last Done: 05/16/25 03:31
*General Assessment Last Done: 05/15/25 21:52
*Neglect/Abuse Screening Last Done: 05/15/25 21:52
*ED- Fall Risk Assessment Last Done: 05/15/25 21:52
*ED COVID-19 Vaccine History Last Done: 05/16/25 03:31
*Nursing Disposition Last Done: 05/16/25 03:17
NW-Zgymph-Ccryjqftgq Assessment Last Done: 05/15/25 21:58
ED-Female Genitourinary Assessment Last Done: 05/15/25 21:58
Discharge Date and Time
Discharge Date/Time: 05/16/25 03:17
[2025-05-15 23:03] VITALS: BP 179/100
[2025-05-15] MEDS: DILAUDID 0.5 MG IV (23:03)
[2025-05-15 23:41] LABS: Urine Character Cloudy (Clear)
[2025-05-15 23:54] LABS: Urine Squamous Cell >30 /LPF (Few)
[2025-05-15 23:55] LABS: Urine Red Blood Cell 70-80 /HPF (0-2); Urine White Cell 0-2 /HPF (0-5)
[2025-05-16] VITALS (13 sets, daily range): BP systolic 109–172; BP diastolic 63–94; BMI 44.8
[2025-05-16] MEDS: MORPHINE SULFATE 2 MG IV (00:33)
[2025-05-16] MEDS: TORADOL 15 MG IV (02:14)
--- NOTE | 2025-05-16 02:17 | HPS.HSE ---
Family Physician
-
Family Physician: Abhinav Carbajal
Chief Complaint
-
Flank pain
History of Present Illness
This is a 66-year-old female with past medical history of tgo-wkwkbuc-[id number] diabetes presented emergency department with left-sided flank pain.
She has a prior history of nephrolithiasis and feels this pain is similar to that. She has not had any fevers or chills. She denies any nausea or vomiting or diaphoresis. She was managing the emergency department with analgesics but continued to
have discomfort was so uncomfortable going home.
In the emergency department she was afebrile, blood pressure was 156/90 with a pulse of 91 she was satting 95% on room air.
CBC was unremarkable, electrolytes BUN and creatinine were stable with a BUN of 18.
UA was positive for blood, negative for leukocyte esterase and negative for WBCs. There was bacteria likely contaminated.
CT of the abdomen pelvis shows a 0.4 cm calculus in the proximal left ureter with mild left hydroureteronephrosis. There is mild left periureteral stranding and mild left perinephric stranding.
Medical History
Past Medical History
Past Medical History: Reports Other
Additional Past Medical History:
Morbid obesity
Ex-smoker quit 1990
Past Surgical History: Reports Other
Additional Past Surgical History:
Hysterectomy
Cholecystectomy
Left ankle reconstruction with rods due to fracture
Tonsillectomy
Bilateral cataract extraction
Social History
Tobacco: Non-smoker
Alcohol: Occasional (Weekends 2 glasses of wine or 2 cocktails with friends)
Drug: None
Personal: Single
Living: Alone
Employment: Retired
Family History
Family History: Other (Sister history of renal calculi, mother pulmonary embolism status post benign brain meningioma resection age 68 history DM2, father age 87 old age)
Allergies / Home Medications
Allergies reflects when Allergies were last updated in [facility].
Home Medications with original date entered in [facility]
Allergy/Medication List:
Allergies
Allergy/AdvReac Type Severity Reaction Status Date / Time
No Known Allergies Allergy Unverified 06/16/24 07:51
Home Medications
No Meds [No Current Medications] 06/16/24
Review of Systems
-
Constitutional: Reports No Symptoms
EENT: Reports No Symptoms
Respiratory: Reports No Symptoms
Cardiac: Reports No Symptoms
Abdomen/GI: Reports No Symptoms
: Reports Flank Pain and Dark Urine
Musculoskeletal: Reports No Symptoms
Skin: Reports No Symptoms
Neurological: Reports No Symptoms
Endocrine: Reports No Symptoms
Hematologic/Lymphatic: Reports No Symptoms
Psych: Reports No Symptoms
Physical Exam
Vital Signs
Vital Signs
Temp Pulse Resp BP Pulse Ox
98.3 F 92 23 156/90 85
05/15/25 21:52 05/16/25 02:00 05/16/25 02:00 05/16/25 01:39 05/16/25 00:00
Physical Exam
General: Well Developed, Well Nourished and No Apparent Distress
HEENT: NormoCephalic, Moist mucous membranes and Atraumatic
Respiratory: Clear
Cardiac: S1/S2 and Regular Rhythm; No Murmur or Rub
GI: Soft, Non Tender, Non Distended and Normal Bowel Sounds; No Organomegaly
Rectal: Deferred by Provider
Musculoskeletal: No Clubbing, No Cyanosis and No Edema
Skin: No Rash
Neuro: Nonfocal/grossly intact
Laboratory Results
-
05/15/25 22:00
05/15/25 22:00
Laboratory Results
Total Bilirubin 0.5 mg/dl (0.2-1.3) 05/15/25 22:00
AST 23 U/L (14-36) 05/15/25 22:00
ALT 29 U/L (0-35) 05/15/25 22:00
Alkaline Phosphatase 95 U/L (38-126) 05/15/25 22:00
Data Reviewed
-
CT Scan: Report Reviewed by me
Lab Data: Labs Reviewed by me
Impression/Plan
-
IMPRESSION:
64-year-old with past medical history of diabetes and hyperlipidemia as well as hypertension who presents to the emergency department with left-sided flank pain and was found to have a 4 mm partially obstructing proximal left ureteral stone with
mild hydroureteronephrosis. She has no fevers or chills. UA does not show signs of an acute infection. She has no signs of systemic infection. She does not feel comfortable going home due to ongoing discomfort. Given size of the stone she has
moderate risk of spontaneous passage
PLAN:
Nephrolithiasis with left-sided obstructing stone, renal function is preserved and she has no signs of infection
-Admit to MedSurg
-Pain control, antiemetics and IV fluids
-Continue tamsulosin
-Urine cultures, blood cultures expect fever, start antibiotics and call urology
-Urology consulted for possible procedure in the morning though less likely
-N.p.o. after midnight
-No for now
Diabetes
� Hold glipizide, continue sliding scale insulin every 6 hours
Hypertension
� Continue ramipril
� Continue rosuvastatin
DVT prophylaxis�SCDs
CODE STATUS�full code
[2025-05-16 03:34] LABS: Glucose - Point of Care 235 mg/dl (70-99)
[2025-05-16] MEDS: LR 1000 IV (04:03)
--- NOTE | 2025-05-16 04:20 | PTCARENOTE ---
Rec'd pt from ED, oriented to room and unit. pt denies pain at this time. Pt call andino placed within reach, pt instructed to ring for assistance, verbalized understanding. Pt instructed to urinate in hat in order to strain urine. will cont to
monitor.
--- NOTE | 2025-05-16 06:01 | CON.MD ---
Consultation - Medical
-
see dictated note
pt with recent stone/UTI in fall 2023
now presents with intractable left flank pain
CT shows 4mm prox left ureteral stone
UA + for no wbc or fever
reviewed with pt
plan for OR later today for stent/possible ureteroscopy
risks, benefits, alternatives reviewed
Consultation
-
Date/Time Consultation Requested: 05/16/25 at 2am
Date/Time Consultation Performed: 05/16/25 at 6am
Requesting Provider: ER
Performing Provider: Virgil
Reason for Consultation: stone
[2025-05-16 06:15] LABS: Glucose - Point of Care 224 mg/dl (70-99)
[2025-05-16] MEDS: NOVOLOG FLEXPEN-HIGH RESISTANCE 4 UNITS SC (06:20)
[2025-05-16] MEDS: ALPHAGAN 0.2% EYE DROPS 1 DROP BOTH EYES ×2 (08:04→15:36)
[2025-05-16] MEDS: ALTACE 2.5 MG PO (08:04)
[2025-05-16] MEDS: CRESTOR 5 MG PO (08:07)
[2025-05-16] MEDS: FLOMAX 0.4 MG PO (08:07)
[2025-05-16] MEDS: TORADOL 10 MG IV (09:07)
[2025-05-16 11:59] LABS: Glucose - Point of Care 176 mg/dl (70-99)
[2025-05-16] MEDS: NOVOLOG FLEXPEN-HIGH RESISTANCE 2 UNITS SC (12:06)
[2025-05-16 13:22] LABS: Glucose - Point of Care 221 mg/dl (70-99)
[2025-05-16 14:06] LABS: Glucose - Point of Care 167 mg/dl (70-99)
--- NOTE | 2025-05-16 14:40 | W.IMMPOSTOP ---
Surgical Immed Post Op Note
-
Primary Surgeon: Tristan
Pre-op Diagnosis: Obstructing proximal left ureteral stone
Post-op Diagnosis: Same, left pyonephrosis indicative of infected left renal collecting system
Procedure Performed: cystoscopy, left stent placement
Anesthesia Type: General
Specimen / Cultures: None/Left kidney urine culture
Estimated Blood Loss: Negligible
Drains: 6Fr x 24 cm JJ left ureteral stent
Complications: None
Operative Findings:
1. Brisk efflux of purulent urine upon wire decompression of left collecting system - c/w infection.
2. Final KUB and cystoscopy confirming satisfactory left stent position at conclusion of procedure.
--- NOTE | 2025-05-16 15:06 | W.PN.HOSP.TC ---
Today's Communication/Plan
-
See plan
Assessment / Plan
Assessment / Plan
Impression
64-year-old with past medical history of diabetes and hyperlipidemia as well as hypertension who presents to the emergency department with left-sided flank pain and was found to have a 4 mm partially obstructing proximal left ureteral stone with
mild hydroureteronephrosis. She has no fevers or chills. UA does not show signs of an acute infection. She has no signs of systemic infection. She does not feel comfortable going home due to ongoing discomfort. Given size of the stone she has
moderate risk of spontaneous passage
Complicated UTI with left proximal Nephro-Irving and hydronephrosis
Other conditions
Type 2 diabetes
Essential hypertension
Obesity BMI [address] abdomen pelvis
Approximate 0.4 cm calculus in the proximal left ureter with mild left hydroureteronephrosis, mild left periureteral stranding and mild left perinephric stranding.
Mild hepatomegaly.
Prior cholecystectomy.
05/16: Status post cystoscopy with findings of obstructive proximal left ureteral stone. Left JJ stent placed
Complicated UTI with infected stone and left hydronephrosis
Not septic upon presentation.
Afebrile with normal white count.
Prior history of the same when in 2023 had E. coli bacteremia
Monitor closely post cystoscopy.
Empiric antibiotics status post single dose of levofloxacin prior to procedure. Continue with ceftriaxone pending urine cultures (blood cultures not sent on admission).
Overall will need at least 7 to 10 days to complete upon discharge
Hold KAREN
Avoid hypotension
IV hydration
Update hemoglobin A1c
Hold glipizide
Insulin sliding scale
Carbohydrate controlled diet
Anticipated Discharge: 24 - 48 hours
Subjective/Interval History
-
Date of Service: May 16, 2025
Objective Data
-
Vital Signs:
Vital Signs
Temp Pulse Resp BP Pulse Ox
97.9 F 84 19 109/94 95
05/16/25 14:43 05/16/25 14:44 05/16/25 14:44 05/16/25 14:45 05/16/25 14:30
I&O
05/15/25 05/16/25 05/17/25
06:59 06:59 06:59
Intake Total 200 / 200
Output Total 300 / 300
Balance -100 / -100
Physical Exam
-
General: Well Developed and No Apparent Distress
HEENT: Normocephalic, Atraumatic and Moist Mucous Membranes
Respiratory: Clear to Auscultation
Cardiac: Regular Rhythm and S1/S2; Negative Murmur, Rub or Gallop
GI: Soft, Nontender, Nondistended and Normal Bowel Sounds; Negative Organomegaly
Rectal: Deferred by Provider
Musculoskeletal: No Clubbing, No Cyanosis and No Edema
Skin: Negative Rash
Neuro: Nonfocal/Grossly Intact
[2025-05-16] MEDS: ROCEPHIN 1000 MG IV (15:35)
[2025-05-16] MEDS: STERILE WATER FOR INJECTION 10 ML IV (15:35)
[2025-05-16] MEDS: NSS 1000 IV (15:35)
[2025-05-16 16:31] LABS: Glucose - Point of Care 184 mg/dl (70-99)
[2025-05-16] MEDS: NOVOLOG FLEXPEN-LOW RESISTANCE 1 UNITS SC (16:40)
[2025-05-16 21:08] LABS: Glucose - Point of Care 215 mg/dl (70-99)
[2025-05-16 21:33] LABS: Hepatitis C Antibody Negative (Negative)
[2025-05-17] MEDS: ALPHAGAN 0.2% EYE DROPS 1 DROP BOTH EYES ×2 (00:09→07:37)
[2025-05-17] MEDS: TYLENOL 650 MG PO (00:12)
[2025-05-17] MEDS: NSS 1000 IV (06:08)
[2025-05-17 07:37] LABS: Glucose - Point of Care 180 mg/dl (70-99)
[2025-05-17] MEDS: NOVOLOG FLEXPEN-LOW RESISTANCE 1 UNITS SC ×2 (07:38→11:29)
[2025-05-17] MEDS: FLOMAX 0.4 MG PO (07:38)
[2025-05-17] MEDS: CRESTOR 5 MG PO (07:38)
[2025-05-17 07:49] VITALS: BP 146/83
--- NOTE | 2025-05-17 08:06 | W.PN.HOSP.TC ---
Today's Communication/Plan
-
Pending urine culture, otherwise possible discharge home today.
Assessment / Plan
Assessment / Plan
Impression
64-year-old with past medical history of diabetes and hyperlipidemia as well as hypertension who presents to the emergency department with left-sided flank pain and was found to have a 4 mm partially obstructing proximal left ureteral stone with
mild hydroureteronephrosis. She has no fevers or chills. UA does not show signs of an acute infection. She has no signs of systemic infection. She does not feel comfortable going home due to ongoing discomfort. Given size of the stone she has
moderate risk of spontaneous passage
Patient admitted and treated for complicated UTI with left proximal Nephro-Irving and hydronephrosis
Seen by urology status post cystoscopy
Urology plan to follow-up as outpatient for ultimate stone treatment
Assessment/plan
Complicated UTI with infected stone and left hydronephrosis
Not septic upon presentation.
Afebrile with normal white count.
CT abdomen pelvis
Approximate 0.4 cm calculus in the proximal left ureter with mild left hydroureteronephrosis, mild left periureteral stranding and mild left perinephric stranding.
Mild hepatomegaly.
Prior cholecystectomy.
05/16: Status post cystoscopy with findings of obstructive proximal left ureteral stone. Left JJ stent placed
Empiric antibiotics status post single dose of levofloxacin prior to procedure.
Continued with ceftriaxone pending urine cultures (blood cultures not sent on admission).
Overall will need at least 7 to 10 days to complete upon discharge
Culture gram-negative rods
Status post IV
Essential hypertension
Resume KAREN discharge
Hyperlipidemia.
Continue Crestor
Obesity BMI 44
Type 2 diabetes
hemoglobin A1c 7.9
Hold glipizide
Insulin sliding scale
Carbohydrate controlled diet
CODE STATUS: Full code
DVT prophylaxis: SCDs
Diet: DM diet.
Disposition: Pending urine culture, otherwise possible discharge home today.
Total time spent on today's encounter was 55 minutes which included time spent in counseling the patient/family regarding diagnosis and treatment plan as listed above, goals of care, and symptom management. Case was discussed with nursing staff,
specialists, and care coordinators/case management. All labs and imaging personally reviewed by me. Remainder the time spent in detailed review of previous records, lab data, imaging, and other medical provider documentation.
Anticipated Discharge: Today
Subjective/Interval History
-
Date of Service: May 17, 2025
Patient seen and examined at bedside, denies any chest pain or shortness of breath, no abdominal pain, no nausea, no vomiting, no diarrhea or constipation.
Objective Data
-
Labs:
Laboratory Results
05/17/25
07:22
WBC Pending
Hgb Pending
Hct Pending
Plt Count Pending
Sodium Pending
Potassium Pending
Chloride Pending
Carbon Dioxide Pending
BUN Pending
Creatinine Pending
Glucose Pending
Calcium Pending
Vital Signs:
Vital Signs
Temp Pulse Resp BP Pulse Ox
98.3 F 76 18 146/83 95
05/17/25 07:49 05/17/25 07:49 05/17/25 07:49 05/17/25 07:49 05/17/25 07:49
I&O
05/16/25 05/17/25 05/18/25
06:59 06:59 06:59
Intake Total 740 / 740
Output Total 300 / 300
Balance 440 / 440
Physical Exam
-
General: Well Developed, Well Nourished, No Apparent Distress and Comfortable
HEENT: Normocephalic, Atraumatic, Moist Mucous Membranes, No Ptosis, PERRLA and Nose Appears Normal
Respiratory: Clear to Auscultation and Non Labored Respirations
Cardiac: Regular Rhythm and S1/S2
Breast: Deferred by me
GI: Soft, Nontender, Nondistended and Normal Bowel Sounds
Genito-urinary: No Costovertebral Tender
Musculoskeletal: No Clubbing, No Cyanosis and No Edema
Skin: Warm
Neuro: Awake, Alert, Oriented, AO x 3 and No Motor Deficits
Psych: Calm
Data Reviewed
-
Diagnostic Radiology: Image personally visualized and interpreted and Report Reviewed by me
CT Scan: Image personally visualized and interpreted and Report Reviewed by me
Ultrasound: Image personally visualized and interpreted and Report Reviewed by me
MRI: Image personally visualized and interpreted and Report Reviewed by me
Medical Tests (Nuc Med, Echo etc): Image personally visualized and interpreted and Report Reviewed by me
Labs: Labs Reviewed by me
Old Records: Reviewed
[2025-05-17 08:23] LABS: Hematocrit 35.9 % (37.0-47.0); Hemoglobin 12.4 g/dL (12.0-16.0); Mean Corp Hgb Conc. 34.5 g/dL (33.0-37.0); Mean Corpuscular Volume 95.2 fL (81.0-99.0); Nucleated Red Blood Cells % 0 %; Platelet Count 177 10^3/uL (130-400); Red Cell Dist. Width 11.9 % (11.5-14.5)
[2025-05-17 08:47] LABS: Blood Urea Nitrogen 13 mg/dl (7-17); Calcium 8.6 mg/dl (8.4-10.2); Carbon Dioxide 22 mmol/L (22-30); Chloride 112 mmol/L (98-107); Estimated Creatinine Clearance > 125 ml/min; Glucose 180 mg/dl (70-99); Potassium 4.0 mmol/L (3.5-5.1); Sodium 140 mmol/L (135-145); eGFR > 60.00
[2025-05-17 09:18] LABS: Glycohemoglobin (HgbA1c) 7.9 % (4.0-5.6)
--- NOTE | 2025-05-17 10:15 | W.PN.URO.CBU ---
Today's Communication / Plan
-
Continue IV antibiotics
F/U UCx S/S for antibiotic treatment course on discharge
F/U w/ Dr. Louise in 1-2 weeks for preop visit to discuss/schedule outpatient stone surgery
Assessment / Plan
-
cUTI
Obstructing proximal left ureteral stone
05/16: s/p cystoscopy + left ureteral stent placement
Intraop findings => purulent efflux of urine from left kidney indicative of UTI.
UCx 05/15 and 05/16 (intraop from left kidney) pending
Diagnosis
-
Date of Service: May 17, 2025
-
Patient Diagnosis:
cUTI
Obstructing proximal left ureteral stone
Post Op Day:
05/16: s/p cystoscopy + left ureteral stent placement
Subjective
-
Afebrile.
Tolerating diet.
Voiding w/o difficulty.
Objective
-
Vital Signs
Temp Pulse Resp BP Pulse Ox
98.3 F 76 18 146/83 95
05/17/25 07:49 05/17/25 07:49 05/17/25 07:49 05/17/25 07:49 05/17/25 07:49
Intake and Output
05/16/25 05/17/25 05/18/25
06:59 06:59 06:59
Intake Total 740 / 740
Output Total 300 / 300
Balance 440 / 440
Intake:
Oral fluids 540 / 540
IV fluids (Total) 200 / 200
Levaquin 100 / 100
normosol 100 / 100
Output:
Urine, Voided 300 / 300
Other:
Number of approximated MODERATE 2
amounts of urine
Number of approximated LARGE 3
amounts of urine
Laboratory Results
05/17/25 07:22
05/17/25 07:22
Physical Exam
-
General - well developed, well nourished, no acute distress
Abdomen - soft, non-tender, no CVAT
Skin - warm & dry with no rash
Neuro - AOx3, no motor deficits
Extremities - no clubbing, no cyanosis, no edema
Care Review
Data Reviewed
Discussed with: Hospitalist
CT Scan: Report Pers Reviewed and Image Pers Reviewed
Total Time Spent with Patient (in minutes): 15
[2025-05-17 11:28] LABS: Glucose - Point of Care 170 mg/dl (70-99)
[2025-05-17] MEDS: ROCEPHIN 1000 MG IV (11:40)
[2025-05-17] MEDS: STERILE WATER FOR INJECTION 10 ML IV (11:41)
--- NOTE | 2025-05-17 14:09 | W.DCSUMMARY ---
Discharge Summary
Discharge Data
Date of Admission: 05/16/25
Date of Discharge: 05/17/25
Total time spent discharging patient (in min): 40
-
Pending Results: No
Hospital Course
Hospital course
64-year-old with past medical history of diabetes and hyperlipidemia as well as hypertension who presents to the emergency department with left-sided flank pain and was found to have a 4 mm partially obstructing proximal left ureteral stone with
mild hydroureteronephrosis. She has no fevers or chills. UA does not show signs of an acute infection. She has no signs of systemic infection. She does not feel comfortable going home due to ongoing discomfort. Given size of the stone she has
moderate risk of spontaneous passage
Patient admitted and treated for complicated UTI with left proximal Nephro-Irving and hydronephrosis
Seen by urology status post cystoscopy
Urology plan to follow-up as outpatient for ultimate stone treatment
Urine culture came back Gram negative rods, will be discharged home on oral antibiotics
During hospitalization patient was treated from the following
Complicated UTI with infected stone and left hydronephrosis
Not septic upon presentation.
Afebrile with normal white count.
CT abdomen pelvis
Approximate 0.4 cm calculus in the proximal left ureter with mild left hydroureteronephrosis, mild left periureteral stranding and mild left perinephric stranding.
Mild hepatomegaly.
Prior cholecystectomy.
05/16: Status post cystoscopy with findings of obstructive proximal left ureteral stone. Left JJ stent placed
Empiric antibiotics status post single dose of levofloxacin prior to procedure.
Continued with ceftriaxone pending urine cultures (blood cultures not sent on admission).
Overall will need at least 7 to 10 days to complete upon discharge
Culture gram-negative rods
Status post IV
Essential hypertension
Resume KAREN discharge
Hyperlipidemia.
Continue Crestor
Obesity BMI 44
Type 2 diabetes
hemoglobin A1c 7.9
Hold glipizide
Insulin sliding scale
Carbohydrate controlled diet
CODE STATUS: Full code
DVT prophylaxis: SCDs
Diet: DM diet.
Disposition: discharge home today.
Total time spent on today's encounter was 40 minutes which included time spent in counseling the patient/family regarding diagnosis and treatment plan as listed above, goals of care, and symptom management. Case was discussed with nursing staff,
specialists, and care coordinators/case management. All labs and imaging personally reviewed by me. Remainder the time spent in detailed review of previous records, lab data, imaging, and other medical provider documentation.
Anticipated Discharge: Today
Discharge Plan
-
Patient Disposition: Home (Routine Discharge)
Discharge Diagnosis/Procedures: Complicated UTI with infected stone and left hydronephrosis
Essential hypertension
Type 2 diabetes
Diet: Diabetic, Carb Controlled
Activity: As tolerated
Referrals:
Abhinav Carbajal DO [Family Provider, Family Practice]
Joe Louise MD [Active, Urology]
Referral Note: Please call [facility] to schedule a preop visit with Dr. Louise to discuss/schedule your outpatient kidney stone surgery within 1-2 weeks of your discharge home.
Prescriptions:
New
tamsulosin 0.4 mg Capsule
0.4 mg PO DAILY Qty: 30 0RF
cefpodoxime 200 mg tablet
200 mg PO BID Qty: 20 0RF
Continued
glipizide 5 mg tablet
5 mg PO DAILY 30 Days Qty: 30 0RF
brimonidine 0.2 % Drops
1 drp OPHTHALMIC (EYE) Q8H
Rx Instructions:
1 drop in both eyes
rosuvastatin 5 mg Tablet
5 mg PO DAILY
ramipril 2.5 mg Tablet
2.5 mg PO DAILY
Discharge Orders:
Discharge Patient (As Directed); Ordered 05/17/25
Ordered By: Brain Martin
Discharge Date and Time
Print Language: KYRGYZ
[2025-05-17 15:13] VITALS: BP 168/96
== END 2025-05-17 16:08 | disposition home or self-care (01) | DRG 660 ==
LOC: 4 EAST ACU 03:20
PROVIDERS: Internal Medicine; Registered Nurse; Surgery; ADMITTING PHYSICIAN Internal Medicine; ATTENDING PHYSICIAN General Practice; CONSULT PHYSICIAN Specialist; EMERGENCY PHYSICIAN Emergency Medicine; FAMILY PHYSICIAN Family Medicine
PROC: 0T778DZ Dilation of Left Ureter with Intraluminal Device, Via Natural or Artificial Opening Endoscopic (ICD-10-PCS; 2025-05-16)
DX: N13.6 Pyonephrosis (principal); Z68.41 Body mass index [BMI] 40.0-44.9, adult; I10 Essential (primary) hypertension; E66.01 Morbid (severe) obesity due to excess calories; E11.36 Type 2 diabetes mellitus with diabetic cataract; E78.00 Pure hypercholesterolemia, unspecified; R16.0 Hepatomegaly, not elsewhere classified; Z87.442 Personal history of urinary calculi; Z87.891 Personal history of nicotine dependence; Z98.41 Cataract extraction status, right eye; Z98.42 Cataract extraction status, left eye; Z90.49 Acquired absence of other specified parts of digestive tract; Z83.3 Family history of diabetes mellitus; Z84.1 Family history of disorders of kidney and ureter; Z82.49 Family history of ischemic heart disease and other diseases of the circulatory system; Z90.710 Acquired absence of both cervix and uterus; Z79.84 Long term (current) use of oral hypoglycemic drugs; Z87.440 Personal history of urinary (tract) infections
CPT/HCPCS: 74018; 74176; 76000; 80048; 80053; 81003; 81015; 82962; 83036; 85025; 86803; 87077; 87086; 87186; 96374; 96375; 99285; C2617

== ENCOUNTER 2025-06-07 06:13 | Day surgery (SDC) | payer MEDICARE, OTHER, SELFPAY ==
--- NOTE | 2025-05-31 08:57 | PTCARENOTE ---
+Urine Culture for Escherichia coli, Adrienne at Dr. Louise's office made aware.
[2025-06-07] VITALS (8 sets, daily range): BP systolic 120–160; BP diastolic 75–97; BMI 43.3
[2025-06-07 11:38] LABS: Glucose - Point of Care 238 mg/dl (70-99)
[2025-06-07] MEDS: NORMOSOL-R/PLASMALYTE-A 1000 IV (12:31)
[2025-06-07 13:33] LABS: Glucose - Point of Care 211 mg/dl (70-99)
[2025-06-07 14:34] LABS: Glucose - Point of Care 194 mg/dl (70-99)
== END 2025-06-07 16:00 | disposition home or self-care (01) ==
LOC: SDS 06:13
PROVIDERS: ATTENDING PHYSICIAN Urology
DX: N20.2 Calculus of kidney with calculus of ureter (principal)
CPT/HCPCS: 52352; 52332; 74018; 76000; 82365; 82962; 93005; C2617